=== PATIENT | male | born 1980 | race Caucasian/White ===

== ENCOUNTER 2019-07-14 02:51 | Emergency (ER) | payer BC ==
--- NOTE | 2019-07-14 03:49 | ERPHSYRPT ---
- History of Present Illness Time Seen by Provider: 07/14/19 03:10 Source: patient, family Exam Limitations: no limitations Patient Subjective Stated Complaint: pt states he had surgery on jun 25 to fix his knuckle rt hand- states yesterday it began swelling and now he has increased swelling in hand and fingers and increased pain. Triage Nursing Assessment: pt alert and oriented, answers questions approp. pt ambulatory with steadyg ait noted. respirations nonlabored with lungs cta. redness and swelling noted to rt hand. warmth and tenderness noted. cap refill and radial pulse wnl. per pt, sensation wnl. Physician History: This is a 38-year-old [id number] male who underwent a tendon repair in 2016 of his right hand, second digit. Approximately 18 days ago patient underwent stitch removal by Dr. Thomas, hand surgeon from [facility]. Patient states things seem to be doing well until approximately 6 PM yesterday evening when he noticed redness and swelling and tenderness. It worsened to the point where the patient sought emergency room evaluation this morning. Patient did note some drainage of fluid prior to arrival. Patient is not on any antibiotic treatment and does not have any medications for pain stronger than Tylenol or ibuprofen. Occurred: yesterday (Evening) Quality: aching, throbbing Severity of Pain-Max: moderate Severity of Pain-Current: moderate Extremities Pain Location: 2nd finger: right ("Knuckle") Modifying Factors: Improves With: movement (Brings on pain) Associated Symptoms: none Allergies/Adverse Reactions: bacitracin [From Neosporin ([id number])] Allergy (Mild, Verified 07/14/19 03: 25) Rash neomycin [From Neosporin ([id number])] Allergy (Mild, Verified 07/14/19 03:25 ) Rash polymyxin B [From Neosporin ([id number])] Allergy (Mild, Verified 07/14/19 03 :25) Rash Hx Tetanus, Diphtheria Vaccination/Date Given: Yes Hx Influenza Vaccination/Date Given: No Hx Pneumococcal Vaccination/Date Given: No Immunizations Up to Date: Yes - Review of Systems Constitutional: No Symptoms Eyes: No Symptoms Ears, Nose, & Throat: No Symptoms Respiratory: No Symptoms Cardiac: No Symptoms Abdominal/Gastrointestinal: No Symptoms Genitourinary Symptoms: No Symptoms Musculoskeletal: No Symptoms Skin: Cellulitis, Other (Abscess right second knuckle) Neurological: No Symptoms Psychological: No Symptoms Endocrine: No Symptoms Hematologic/Lymphatic: No Symptoms Immunological/Allergic: No Symptoms All Other Systems: Reviewed and Negative - Past Medical History Pertinent Past Medical History: No Neurological History: No Pertinent History ENT History: No Pertinent History Cardiac History: No Pertinent History Respiratory History: No Pertinent History Endocrine Medical History: No Pertinent History Musculoskeletal History: No Pertinent History GI Medical History: No Pertinent History History: No Pertinent History Psycho-Social History: No Pertinent History Male Reproductive Disorders: No Pertinent History - Past Surgical History Past Surgical History: Yes Neuro Surgical History: No Pertinent History Cardiac: No Pertinent History Respiratory: No Pertinent History Gastrointestinal: No Pertinent History Genitourinary: No Pertinent History Musculoskeletal: Orthopedic Surgery Male Surgical History: No Pertinent History Other Surgical History: surgery to lt hand. ulnar nerve surgery, carpal tunnel bilat, trigger finger surgery. skin grafts lt arm - Social History Smoking Status: Former smoker Exposure to second hand smoke: No Drug Use: none Patient Lives Alone: No - Nursing Vital Signs Nursing Vital Signs: Initial Vital Signs Temperature 97.6 F 07/14/19 02:58 Pulse Rate 92 H 07/14/19 02:58 Respiratory Rate 18 07/14/19 02:58 Blood Pressure 141/92 07/14/19 02:58 O2 Sat by Pulse Oximetry 99 07/14/19 02:58 Pain Scale Pain Intensity 9 - Physical Exam General Appearance: mild distress, alert, anxiety Eyes, Ears, Nose, Throat Exam: normal ENT inspection, moist mucous membranes Neck Exam: normal inspection, non-tender, supple, full range of motion Cardiovascular/Respiratory Exam: chest non-tender Abdominal Exam: non-tender Back Exam: normal inspection, normal range of motion, No CVA tenderness, No vertebral tenderness Shoulder Exam: normal inspection, non-tender, no evidence of injury, normal ROM Elbow/Forearm Exam: normal inspection, non-tender, no evidence of injury, normal ROM Wrist Exam: normal inspection, non-tender, no evidence of injury, normal ROM Hand Exam: infection (Patient has a small localized abscess overlying these right second knuckle with associated cellulitis. The abscess is ballotable. There is some pus draining from the site. There is tenderness to palpation and warmth. There is no proximal streaking. The patient has more pain with flexion of the second finger then extension of the second finger), limited ROM, soft tissue tenderness, swelling Neuro/Tendon Exam: tendon function deficit (See above) Mental Status Exam: alert, oriented x 3, cooperative Skin Exam: other (Lysed abscess overlying the second knuckle of the right hand with associated cellulitis. No proximal streaking present.) SpO2: 99 O2 Delivery: Room Air Procedures - Incision and Drainage Site: Abscess overlying the right second knuckle Anesthesia: 1% Lidocaine cc's of anesthesia: 1 Blade Size: 11 I & D Procedure: betadine prep, culture obtained Results: small amount pus - Splinting Type of Splint: Foam Pad Finger Splint Splint Applied By: ED Nurse Pre-Proc Neuro Vasc Exam: normal Post-Proc Neuro Vasc Exam: neurovascular intact - Course Nursing assessment & vital signs reviewed: Yes Ordered Tests: Active Orders 24 hr Category Date Time Status Splint STAT Care 07/14/19 03:52 Ordered Wound Care STAT Care 07/14/19 03:50 Ordered HAND (MINIMUM 3 VIEWS) Stat Exams 07/14/19 Ordered CULTURE,WOUND Stat Lab 07/14/19 03:50 Uncollected Medication Summary Discontinued Medications Generic Name Dose Route Start Last Admin Trade Name Elioq PRN Reason Stop Dose Admin Ceftriaxone Sodium Confirm 07/14/19 03:52 Rocephin 1000 Mg Inj Administered 07/14/19 03:53 Dose 1,000 mg .ROUTE .STK-MED ONE Hydromorphone HCl Confirm 07/14/19 03:52 Hydromorphone 1 Mg/Ml Ampule Administered 07/14/19 03:53 Dose 1 mg .ROUTE .STK-MED ONE Ondansetron HCl Confirm 07/14/19 03:52 Zofran Odt 4 Mg Administered 07/14/19 03:53 Dose 4 mg .ROUTE .STK-MED ONE - Progress Progress: improved, pain not gone completely Progress Note: 07/14/19 04:05 X-ray of the right hand reveals no radio opaque retained foreign body. No fracture or dislocation noted. differential diagnosis: This patient has either a postoperative skin infection/ cellulitis or a retained foreign body such as a stitch abscess. Medical decision making: This patient underwent incision and drainage of the abscess overlying the right second knuckle. Cultures were obtained and patient received an intramuscular Rocephin as well as intramuscular Dilaudid and oral Zofran. We will place the patient in a finger splint to keep him in the functional position. Patient is to contact his hand surgeon this morning for further management and instructions. We will send a prescription for pain medicine and more antibiotics to the patient's pharmacy. Counseled pt/family regarding: diagnosis, need for follow-up, rad results - Departure Departure Disposition: Home Clinical Impression: Postoperative wound abscess Condition: Stable Critical Care Time: No Referrals: BRODIE GANN DO [Primary Care Provider] - Additional Instructions: Contact your hand surgeon today or whoever is ever kindergarten paraprofessional for him. If your symptoms worsen then proceed to the emergency department for further evaluation possible transfer to a facility with a hand surgeon or orthopedic surgeon. While awaiting contact with your hand surgeon, may re-move dressing and splint and wash the area twice a day with soap and water. No lotions or ointments or creams to site. After washing and drying the site, replace the finger splint and bandage the incision and drainage site. Take your medication as prescribed. Prescriptions: Oxycodone HCl/Acetaminophen [Percocet 5-325 mg Tablet] 1 each PO Q8H PRN PRN # 12 tablet MDD 3 PRN Reason: Pain Smz/Tmp Ds Tablet [Bactrim Ds Tablet] 1 udtab PO BID #14 tablet
[2019-07-14] MEDS ORDERED: Rocephin 1000 MG INJ IM ONE ×2 (03:50→04:09)
[2019-07-14] MEDS ORDERED: ZOFRAN ODT 4 MG PO ONE (03:50)
[2019-07-14] MEDS ORDERED: ZOFRAN ODT 4 MG ONE (03:52)
[2019-07-14] MEDS ORDERED: Hydromorphone 1 mg/ml Ampule IM ONE (03:52)
[2019-07-14] MEDS ORDERED: Hydromorphone 1 mg/ml Ampule ONE ×2 (03:52→04:53)
[2019-07-14] MEDS ORDERED: Rocephin 1000 MG INJ ONE ×2 (03:52→04:12)
[2019-07-14] MEDS ORDERED: Ativan 2 MG/1 ML VIAL IV ONE (04:43)
[2019-07-14] MEDS ORDERED: Hydromorphone 1 mg/ml Ampule IV ONE (04:43)
[2019-07-14] MEDS ORDERED: ROCEPHIN 1 Gm-D5w 50 ml Bag** 1 G/50 ML IVPB IV ONE ×2 (04:43→04:53)
[2019-07-14] MEDS ORDERED: Ativan 2 MG/1 ML VIAL ONE (04:52)
[2019-07-14 06:36] VITALS: BP 118/65; PULSE 70; O2SAT 100
--- NOTE | 2019-07-14 07:42 | XRAY ---
Indication: 2nd MCP erythema, swelling, and pain following surgery 3 weeks ago. Comparison: None 3 views of the right hand demonstrates mild soft tissue swelling. No other bony, articular, or soft tissue abnormalities.
== END 2019-07-14 06:23 | disposition home or self-care (01) ==
LOC: ED 02:51
DX: T81.49XA Infection following a procedure, other surgical site, initial encounter (principal)
CPT/HCPCS: 26010; 73130; 87070; 87077; 87186; 96365; 96372; 96374; 96375; 99284; J0696; J1170; J2060; Q0162